=== PATIENT | male | born 1955 | race Caucasian/White ===

== ENCOUNTER 2017-03-24 22:44 | Inpatient (IN) | payer OTHER ==
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
--- NOTE | ~2017-03-24 | DS ---
Discharge Summary [facility] [address] [facility] [place]. [address] NAME: DAVID VALVERDE : 55 STATUS : DIS Nathanael PAT#: [id number] AGE: 61 ADM/REG DATE : 03/24/17 MR#: [id number] REPORT SERV DATE: 03/27/17 DICTATED BY: JR. BUSTILLOS WILLIAM JOHN DATE: 03/26/17 REPORT STATUS : Draft TRANSCRIBED BY: CHARLENE DATE: 03/26/17 ADMISSION DATE: 03/24/2017 DISCHARGE DATE: 03/26/2017 DISCHARGE DIAGNOSES: Include: 1. Left upper extremity pain and weakness secondary to cervical spinal stenosis in level C5 through C7. 2. Hypertension. 3. Insulin-requiring diabetes mellitus with hemoglobin A1c of 10.6. 4. Thrombocytopenia, which is chronic. 5. History of dark stools. 6. Elevated troponin with a flat curve and no wall motion abnormalities on echocardiogram. OPERATIONS, PROCEDURES, AND TREATMENTS: Include: 1. Echocardiogram done on 03/25/2017, showed left ventricular systolic function of 60% with borderline left ventricular diastolic dysfunction. Right ventricular systolic function was intact. There were no valvular abnormalities. No prior studies were available for comparison. 2. MRI of the brain done on 03/25/2017, which showed excellent appearance of brain for his age with no acute findings. There was small amount of bilateral mastoid fluid. 3. MRI of the cervical spine showed C6-C7 herniation plus osteophyte impinging on the right anterior cord margin. There is disk osteophyte complex at C5-C6, but did not compress the cord into the neutral position. There is uncovertebral and facet spondylosis causing foraminal stenosis on the left at C4-C5 bilaterally, on the left greater than the right at level C5-C6 and C6-C7. CONSULTING PHYSICIAN: Include Neurology, Dr. Delcid and Dr. Starks of Spine Surgery. DISCHARGE MEDICATIONS: Include: 1. Norvasc 5 mg orally daily. 2. Neurontin 200 mg orally three times a day. 3. Lantus insulin 50 units at the hour of sleep. 4. Lisinopril 10 mg orally daily. 5. Robaxin 500 mg twice a day. 6. [place] 10/325 one tablet every four hours as needed. HOSPITAL COURSE: The patient was a 61-year-old male with a history of neck injury in the past, who presented to the emergency room with complaint of chest pain and left-sided numbness. The patient said that on 03/22/2017, he felt a pop in his neck , he awakened with pain radiating down his neck, down to the left lateral chest, left abdominal wall to left lower extremity. The numbness persisted, and the patient presented to [facility] for further care. Exam was remarkable for intact speech. Left upper extremity, decreased sensation as well as strength. Please see Dr. Salazar's excellent dictated history and physical for further laboratory and initial radiology. The patient was admitted to the Clinical Decision Unit. He had an MRI of the brain without Discharge Summary [address] [address] NAME: DAVID VALVERDE : 55 STATUS : DIS Nathanael PAT#: [id number] AGE: 61 ADM/REG DATE : 03/24/17 MR#: [id number] REPORT SERV DATE: 03/27/17 DICTATED BY: JR. BUSTILLOS WILLIAM JOHN DATE: 03/26/17 REPORT STATUS : Draft TRANSCRIBED BY: CHARLENE DATE: 03/26/17 acute findings, also had an MRI of the cervical spine, which is detailed above. The patient's pain persisted. He was started on Robaxin as well as analgesia and seen by Physical Therapy. Recommendation for physical therapy was outpatient Physical Therapy. The patient was subsequently seen by Dr. Starks of Spine surgery, who recommended conservative therapy at this point after discussing it with the patient. The patient is able to participate in outpatient physical therapy and feels the oral pain regimen is reasonable. He will be discharged home today. 03/26/2017, we will have outpatient Physical Therapy and Occupational Therapy. We will follow up with Dr. Starks as well as Dr. Alba is his primary care provider in one week. This discharge took 35 minutes for patient encounter, coordination care, and documentation. DISCHARGED DIET: ADA. ACTIVITY: As tolerated. For discharge exam and laboratory, please see daily progress note. ОЛЕГ/CHARLENE Inocente Bustillos Jr, MD / [id number] CC: Inocente Bustillos Jr, MD
[2017-03-24] MEDS ORDERED: PRIN10 PO (23:14)
[2017-03-24] MEDS ORDERED: LANTUS SC (23:14)
[2017-03-25 02:44] LABS: TROPONIN I 0.27 NG/ML (<0.05)
[2017-03-25 02:45] LABS: B NATRIURETIC PEPTIDE (BNP) 104.3 PG/ML (< 100.0); C-REACTIVE PROTEIN < 2.9 MG/L (<8.0)
[2017-03-25 07:48] LABS: GLYCOHEMOGLOBIN (HbA1c) 10.6 % (4.7-6.1)
[2017-03-25 10:44] LABS: CPK 42 U/L (0-200)
[2017-03-25 10:45] LABS: CK-MB 2.8 NG/ML; TROPONIN I 0.25 NG/ML (<0.05)
[2017-03-25 11:43] LABS: HEPATITIS B SURFACE ANTIGEN NON-REACTIVE (NON-REACT)
[2017-03-25 11:46] LABS: HEPATITIS C ANTIBODY NON-REACTIVE (NON-REACT)
[2017-03-25 11:47] LABS: HEPATITIS B CORE AB IGM NON-REACTIVE (NON-REAC)
[2017-03-25 12:08] LABS: HIV COMBO NON-REACTIVE (NON REAC)
[2017-03-25 12:09] LABS: HEP A ANTIBODY IGM NON-REACTIVE (NON-REACT)
[2017-03-25 17:28] LABS: CPK 46 U/L (0-200)
[2017-03-25 17:29] LABS: CK-MB 2.6 NG/ML; TROPONIN I 0.24 NG/ML (<0.05)
[2017-03-26 04:52] LABS: BASOPHILS 0.4 %; BASOPHILS ABSOLUTE 0.02 10/3/uL (0.0-0.16); EOSINOPHILS 3.1 %; EOSINOPHILS ABSOLUTE 0.15 10/3/uL (0.0-0.53); HEMATOCRIT 38.3 % (40.0-51.0); HEMOGLOBIN 13.7 g/dL (13.6-17.8); IMMATURE GRANULOCYTES 0.4 %; IMMATURE GRANULOCYTES ABSOLUTE 0.02 10/3/uL (0.0-0.11); LYMPHOCYTES 29.6 %; LYMPHOCYTES ABSOLUTE 1.45 10/3/uL (0.67-4.30); MEAN CORPUS HGB CONC 35.8 g/dL (32.0-36.0); MEAN CORPUSCULAR HEMOGLOB 33.7 pg (26.0-34.0); MEAN CORPUSCULAR VOLUME 94.3 fL (80-100); MEAN PLATELET VOLUME 10.3 fL (9.2-13.0); MONOCYTES 10.6 %; MONOCYTES ABSOLUTE 0.52 10/3/uL (0.21-1.20); NEUTROPHILS 55.9 %; NEUTROPHILS ABSOLUTE 2.74 10/3/uL (2.02-8.40); PLATELET COUNT 90 10/3/uL (150-400); RBC DISTRIBUTION WIDTH 12.5 % (12.0-16.0); RED CELL COUNT 4.06 10/6/uL (4.7-6.1); WHITE BLOOD CELLS 4.9 10/3/uL (4.5-10.5)
[2017-03-26 04:57] LABS: MANUAL DIFF NO %
[2017-03-26 05:01] LABS: BUN (BLOOD UREA NITROGEN) 27 MG/DL (6-23); CALCIUM, SERUM 8.9 MG/DL (8.5-10.4); CHLORIDE, SERUM 107 MMOL/L (96-112); CHOL/HDL RATIO(NOT ORDER) 4.3 (0-5); CHOLESTEROL 184 MG/DL (< 200); CO2 (CARBON DIOXIDE) 26 MMOL/L (24-34); GFR AFRICAN AMERICAN 75 ML/MIN (>=60); GFR NON AFRICAN AMERICAN 65 ML/MIN (>=60); GLUCOSE, SERUM 175 MG/DL (60-99); HDL CHOLESTEROL 43 MG/DL (> 39); LDL CHOLESTEROL 103 MG/DL (< 130); NON-HDL CHOLESTEROL 141 MG/DL (< 160); POTASSIUM, SERUM 4.2 MMOL/L (3.5-5.3); SODIUM, SERUM 141 MMOL/L (135-148); TRIGLYCERIDE 190 MG/DL (< 150)
[2017-03-26 05:41] LABS: TROPONIN I 0.23 NG/ML (<0.05)
[2017-03-26] MEDS ORDERED: NEUR100 PO (11:39)
[2017-03-26] MEDS ORDERED: NORV5 PO (11:39)
[2017-03-26] MEDS ORDERED: METHOC500B PO (11:40)
[2017-03-26] MEDS ORDERED: NORCO1 TAB PO (11:41)
[2017-06-05] MEDS ORDERED: ZESTRIL20 MG PO (09:59)
[2017-06-05] MEDS ORDERED: GLUCOPHAGE1000 MG PO (10:00)
[2017-06-05] MEDS ORDERED: CYANO1000T PO (10:02)
[2017-06-12] MEDS ORDERED: PCET PO (09:32)
[2017-06-12] MEDS ORDERED: METHOC500B PO (09:33)
[2017-06-12] MEDS ORDERED: APRES10B PO (10:06)
== END 2017-03-26 12:24 | disposition home or self-care (01) | DRG 552 ==
LOC: CDU2 22:44
PROVIDERS: Internal Medicine; Nurse Practitioner; Nurse Practitioner Family
DX: M48.02 Spinal stenosis, cervical region (principal); E11.40 Type 2 diabetes mellitus with diabetic neuropathy, unspecified; D69.6 Thrombocytopenia, unspecified; G81.94 Hemiplegia, unspecified affecting left nondominant side; E11.9 Type 2 diabetes mellitus without complications; I10 Essential (primary) hypertension; G89.29 Other chronic pain; Z79.4 Long term (current) use of insulin; Z87.11 Personal history of peptic ulcer disease; Z98.890 Other specified postprocedural states
CPT/HCPCS: 70551; 72141; 80048; 80061; 80074; 82306; 82550; 82553; 82607; 82962; 83036; 83880; 84443; 84484; 85025; 85379; 86140; 87389; 93005; 97161-GP; 97165-GO; A9270-GY; C8929; Q9957